=== PATIENT | female | born 1975 | race Caucasian/White ===

== ENCOUNTER 2016-05-23 15:34 | Emergency (ER) | payer SELFPAY | END 2016-05-23 18:44 | disposition home or self-care (01) | LOC: FER 15:34 | DX: M54.41 Lumbago with sciatica, right side (principal); K08.89 Other specified disorders of teeth and supporting structures; F17.210 Nicotine dependence, cigarettes, uncomplicated | CPT/HCPCS: J1030; J1885 ==